=== PATIENT | female | born 1975 | race Caucasian/White ===

== ENCOUNTER → 2020-04-16 14:55 | Outpatient (BNVA) | payer BC, SELFPAY | PROVIDERS: Family Provider Family Medicine; PCP Family Medicine; Visit Provider Nurse Practitioner | DX: Z20.828 Contact with and (suspected) exposure to other viral communicable diseases (principal) | CPT/HCPCS: 87635 ==

== ENCOUNTER 2020-12-22 07:19 | Outpatient (CLI) | payer OTHER, SELFPAY ==
--- NOTE | 2020-12-22 07:15 | US_ITS ---
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 TECHNIQUE: 2-D and color Doppler imaging of the kidney submitted. Right kidney: 11.3 cm x 4.7 cm x 4.3 cm. Normal size kidney. The fat-containing mass extending from the lower pole of the kidney measures 6.7 x 3.3 cm. No definite increased vascularity. This mass is probably not changed significantly in size but is difficult to evaluate by ultrasound due to its hyperechoic nature. Left kidney: 9.7 cm x 5.2 cm x 5.2 cm. Normal echogenicity with no hydronephrosis or mass. Aorta: Normal. Urinary Bladder: Normal distention. US/US renal BI* [id number] IMPRESSION: 1. Relatively stable appearance of the fat-containing mass associated with the lower pole RIGHT kidney since 12/09/2018. 2. No hydronephrosis.
== END 2020-12-22 07:20 | disposition home or self-care (01) ==
PROVIDERS: PCP Family Medicine; Visit Provider Urology
DX: D30.01 Benign neoplasm of right kidney (principal)
CPT/HCPCS: 76770; 81003

== ENCOUNTER → 2021-01-26 14:50 | Outpatient (BNVA) | payer OTHER, SELFPAY | PROVIDERS: PCP Family Medicine; Visit Provider Obstetrics & Gynecology | DX: Z30.431 Encounter for routine checking of intrauterine contraceptive device (principal); Z30.9 Encounter for contraceptive management, unspecified | CPT/HCPCS: 87070; 87205 ==

== ENCOUNTER → 2021-03-10 16:19 | Outpatient (BNVA) | payer OTHER, SELFPAY | PROVIDERS: PCP Family Medicine; Visit Provider Obstetrics & Gynecology | DX: Z12.4 Encounter for screening for malignant neoplasm of cervix (principal); Z30.431 Encounter for routine checking of intrauterine contraceptive device | CPT/HCPCS: 88175 ==

== ENCOUNTER 2022-09-12 09:38 | Outpatient (CLI) | payer OTHER, SELFPAY ==
--- NOTE | 2022-09-12 09:55 | MM_ITS ---
WS: [id number] DIAGNOSTIC BILATERAL DIGITAL BREAST TOMOSYNTHESIS MAMMOGRAPHY WITH CAD RIGHT breast ultrasound, limited HISTORY: N63.0 - Unspecified lump in unspecified breast, RIGHT COMPARISON: None available. TECHNIQUE: Bilateral craniocaudad, mediolateral oblique, and mediolateral views are submitted with to mosynthesis and SM. Spot compression RIGHT CC and MLO. Computer aided detection utilized. Breast composition: The breasts are heterogeneously dense, which may obscure small masses. Marker is placed along the lateral inferior RIGHT breast at the palpable site. No underlying mass identified. N o calcifications. No distortion. The LEFT breast is negative. RIGHT breast ultrasound, limited. Ultrasound directed along the 8-9 o'clock axis in the area of palpable abnormality. No mass identifie d. There is no shadowing or distortion. MM/[place] [id number] IMPRESSION: BI-RADS: 2-Benign FOLLOW UP: 1 Year Follow-up
--- NOTE | 2022-09-12 10:15 | US_ITS ---
WS: [id number] DIAGNOSTIC BILATERAL DIGITAL BREAST TOMOSYNTHESIS MAMMOGRAPHY WITH CAD RIGHT breast ultrasound, limited HISTORY: N63.0 - Unspecified lump in unspecified breast, RIGHT COMPARISON: None available. TECHNIQUE: Bilateral craniocaudad, mediolateral oblique, and mediolateral views are submitted with to mosynthesis and SM. Spot compression RIGHT CC and MLO. Computer aided detection utilized. Breast composition: The breasts are heterogeneously dense, which may obscure small masses. Marker is placed along the lateral inferior RIGHT breast at the palpable site. No underlying mass identified. N o calcifications. No distortion. The LEFT breast is negative. RIGHT breast ultrasound, limited. Ultrasound directed along the 8-9 o'clock axis in the area of palpable abnormality. No mass identifie d. There is no shadowing or distortion. US/US breast RT limited* [id number] IMPRESSION: BI-RADS: 2-Benign FOLLOW UP: 1 Year Follow-up
== END 2022-09-12 09:39 | disposition home or self-care (01) ==
PROVIDERS: PCP Family Medicine; Visit Provider Obstetrics & Gynecology
DX: N63.10 Unspecified lump in the right breast, unspecified quadrant (principal)
CPT/HCPCS: 76642; 77062; G0279

== ENCOUNTER → 2022-10-30 11:04 | Outpatient (BNVA) | payer OTHER, SELFPAY | PROVIDERS: PCP Family Medicine; Visit Provider Nurse Practitioner Family | DX: J02.9 Acute pharyngitis, unspecified (principal); J03.00 Acute streptococcal tonsillitis, unspecified | CPT/HCPCS: 87880 ==

== ENCOUNTER 2022-11-21 10:58 | Outpatient (CLI) | payer OTHER, SELFPAY ==
--- NOTE | 2022-11-21 10:45 | US_ITS ---
WS: [id number] RENAL ULTRASOUND HISTORY: NEOPLASM RT KIDNEY COMPARISON: 12/22/2020, CT 12/27/2017 TECHNIQUE: 2-D and color Doppler imaging of the kidney submitted. Right kidney: 11.0 cm x 5.4 cm x 4.1 cm. Cortex: 1.3 cm No hydronephrosis. Previously described solid fat-containing mass associated with the kidney is not v isualized by ultrasound. Fatty neoplasm may blend into the adjacent retroperitoneal fat. Left kidney: 10.9 cm x 5.7 cm x 4.9 cm. Cortex: 1.9 cm Normal echogenicity with no hydronephrosis or mass. Aorta: Normal. Urinary Bladder: Normal distention. US/US renal BI* [id number] IMPRESSION: 1. Normal renal ultrasound. 2. Previously described fat-containing mass from the RIGHT kidney is not ident ified by ultrasound. This is probably due to the fact that it blends in with th e adjacent retroperitoneal fat. For more definitive characterization and follow -up consider CT abdomen with IV contrast.
== END 2022-11-21 10:59 | disposition home or self-care (01) ==
LOC: RAD 11:00
PROVIDERS: PCP Family Medicine; Visit Provider Urology
DX: D30.01 Benign neoplasm of right kidney (principal)
CPT/HCPCS: 76770; 81003

== ENCOUNTER 2022-12-03 11:37 | Outpatient (CLI) | payer OTHER, SELFPAY ==
--- NOTE | 2022-12-03 11:45 | MR_ITS ---
WS: [id number] MRI ABDOMEN with and without CONTRAST. COMPARISON: Renal ultrasound 11/21/2022., Prior CT 12/28/2027. Multiplanar, multisequence imaging is performed with and without contrast. Reidentified is the fat-containing mass contiguous and emanating from the RIGHT lateral renal cortex. Fat-containing mass with a few thin thin septations which do enhance. Mass is very similar in size a s compared to the CT from 12/27/2017. Mass extends over a length of 7.2 cm x 5.7 cm transversely and 5. 0 cm anterior posterior. Mass abuts the posterior muscularis propria of the ascending colon. There is no adjacent free fluid. No large areas of hemorrhage. On the postcontrast imaging there are a few fi ne thin septations which do enhance. No additional abnormality within either kidney. There is no obst ruction. Visualized lung bases are clear. Liver and spleen are negative. No adrenal mass. Negative pancreas. S mall ventral abdominal wall hernia. MR/MR abdomen wo/w con* [id number] IMPRESSION: 1. Large fat-containing mass with septal enhancement involving the RIGHT kidne y measures 5.7 x 5.0 cm and extends over a length of 7.2 cm. Very similar in si ze to the CT of 12/27/2017. Most consistent with a renal angiomyolipoma. 2. No additional renal masses and no obstruction.
[2022-12-03] MEDS: gadobenate dimeglumine 20 mL vial IV (13:23)
== END 2022-12-03 11:38 | disposition home or self-care (01) ==
PROVIDERS: PCP Family Medicine; Visit Provider Urology
DX: D30.01 Benign neoplasm of right kidney (principal)
CPT/HCPCS: 74183; A9577

== ENCOUNTER → 2022-12-04 16:07 | Outpatient (BNVA) | payer OTHER, SELFPAY | PROVIDERS: PCP Family Medicine; Visit Provider Urology | DX: D30.01 Benign neoplasm of right kidney (principal) | CPT/HCPCS: 81003 ==

== ENCOUNTER → 2023-01-02 15:51 | Outpatient (BNVA) | payer OTHER, SELFPAY | PROVIDERS: PCP Family Medicine; Visit Provider Family Medicine | DX: R53.83 Other fatigue (principal); Z13.6 Encounter for screening for cardiovascular disorders | CPT/HCPCS: 80053; 80061; 82306; 84443; 85025 ==

== ENCOUNTER 2023-11-19 10:37 | Day surgery (SDC) | payer OTHER, SELFPAY ==
[2023-11-19] VITALS (11 sets, daily range): BP systolic 96–126; BP diastolic 60–84; PULSE 49–65; RESP 16–18; TEMP 36.2–36.6; O2SAT 96–100; BMI 26.6
[2023-11-19] MEDS: sodium chloride 0.9% 1,000 ML 30 ML IV (11:12)
--- NOTE | 2023-11-19 12:14 | ANES.PREANE2 ---
Pre-Anesthetic Assessment Height/Weight: Height 1.75 m Weight 81.647 kg Temp Pulse Resp BP Pulse Ox O2 Del Method 97.8 F 65 18 126/84 99 Room Air 11/19/23 11:00 11/19/23 11:00 11/19/23 11:00 11/19/23 11:00 11/19/23 11:00 11/19/23 11:00 Operation Date: 11/19/23 12:10 Proposed Procedures p Laparoscopic Ventral Hernia Repair Laparoscopic Incisional Hernia Repair(Not Applicable) - Lamberto Osorio DO s Laparoscopic Umbilical Hernia Repair(Not Applicable) - Lamberto Osorio DO Familial anesthetic complications: none Was Beta Justus taken within 24 hours: N/A Was Clonidine taken within 24 hours: N/A Last intake: Intake Last Liquid Date 11/18/23 Last Liquid Time 23:00 Last Solid Date 11/18/23 Last Solid Time 20:00 Social No alcohol and No tobacco Exam alert, oriented x 3, clear to auscultation bilaterally and regular rate & rhythm Airway Mallampati: Class I Dentition: full Anesthetic Plan ASA status: 1 Anesthesia: General Risk of > 500 ml blood loss (7ml/kg in children): No Medications/Allergies Home Medications Medication Instructions Recorded Confirmed Last Taken Type copper 380 square mm intrauterine intrauterine 03/10/21 11/04/23 Unknown History device (ParaGard T 380A) Allergies Allergy/AdvReac Type Severity Reaction Status Date / Time No Known Allergies Allergy Verified 11/04/23 08:33 Current Medications Generic Name Dose Route Start Last Admin Trade Name Freq PRN Reason Stop Dose Admin Sodium Chloride 1,000 mls @ 30 mls/hr 11/19/23 11:00 11/19/23 11:12 Sodium Chloride 0.9% IV 11/20/23 10:59 30 mls/hr .Q24H PRADEEP Administration PFSH Anesthesia Medical History Breast lump Angiomyolipoma of right kidney Asthma Surgical History History of wisdom tooth extraction Family History Sister Diabetes Father Diabetes Mother , AT AGE 87 Cancer Heart disease Father No problems noted. Denies family history of Colon cancer Ovarian cancer Hypercholesteremia Breast cancer Hypertension Uterine cancer Thyroid disease Stroke Social History Smoking and tobacco/nicotine status: never used tobacco/nicotine Alcohol intake: current Alcohol intake frequency: few times a week Substance/Drug Use: never Marital status: Current occupational status: unemployed Do you think of yourself as: Straight/Heterosexual Data Anesthesia Cardiac Studies: No Data to Display
--- NOTE | 2023-11-19 13:20 | W.PM.OPSUD ---
Surgery/Procedure H&P Update DATE OF PROCEDURE: November 19, 2023 DATE H&P PERFORMED: 11/04/23 H&P UPDATE INFORMATION: I have reviewed H&P completed within last 30 days, I have examined patient prior to procedure and No changes to prior documentation PLANNED PROCEDURE: Operation Date: 11/19/23 12:10 Proposed Procedures p Laparoscopic Ventral Hernia Repair Laparoscopic Incisional Hernia Repair(Not Applicable) - DO marco Swift Laparoscopic Umbilical Hernia Repair(Not Applicable) - Lamberto Osorio DO
[2023-11-19] MEDS: ceFAZolin 2,000 MG in sodium chloride 0.9% (plus) 50 ML 100 MG IV (14:24)
[2023-11-19] MEDS: BUPivacaine 0.25% INJ 10 mL INJECTION (14:58)
[2023-11-19] MEDS: lidocaine-epi 2% PF 1:200,000 20 mL SDV XX (14:58)
[2023-11-19] MEDS: fentaNYL 50 mcg/mL INJ 2mL IVP (15:50)
--- NOTE | 2023-11-19 15:50 | PM.OP ---
Operative Report Date of procedure: November 19, 2023 Pre-op diagnosis: Incisional hernia and umbilical hernia Post-op diagnosis: same Procedure done: Laparoscopic repair of umbilical and incisional hernias with mesh Implants: 6 inch round Ventralight mesh Specimens removed/disposition: Hernia sac Surgeon: Lamberto Osorio DO Anesthesia: General and Local Estimated blood loss (mL): 5 Complications: None apparent Brief History: This very pleasant 48-year-old female presented my office with a fairly large incisional hernia with an adjacent umbilical hernia. Laparoscopic repair with mesh was indicated. The risk and benefits were explained and documented. Procedure: Patient was wheeled into the operative room and placed on the OR table in a supine position. Abdomen was inspected prepped and draped in usual sterile fashion. Time-out was performed and all present were in agreement. A 15 blade scalp was used to make a 5 millimeter incision left upper quadrant. A Veress needle was placed into the incision and intra-abdominal insufflation was brought to 15 millimeters of mercury. A 12 millimeter trocar was placed into the left lower quadrant. There was an incisional hernia just cephalad to the umbilical hernia. The tumor basically conjoined and measured 5 cm and greatest diameter combined. The energy but device was then used to cut out the hernia sac. A 6 inch ventral light mesh was placed into the abdomen and brought up through the umbilicus using an the Gadiel-Fatimah. The mesh was then tacked in place in a double crown fashion. The skeleton of the mesh was removed via the left lower quadrant. The hernia sac was then removed from the abdomen via the left lower quadrant. The left lower quadrant port site was closed with an 0 Vicryl suture in a Gadiel-Fatimah in a [id number] fashion. Incisions were closed with 4 O Vicryl in a subcuticular interrupted fashion. Skin glue was applied. Patient tolerated the procedure well.
[2023-11-19] MEDS: HYDROcodone-acetaminophen 7.5-325 mg Tablet 1 TAB PO (16:44)
[2023-11-19] MEDS: ondansetron 2 mg/ML SDV 2 mL 4 MG IVP (16:51)
--- NOTE | 2023-11-19 17:45 | ANE.PACU2 ---
Inpatient post-anesthesia follow up: Airway intact: Yes Vital signs: Temperature 97.5 F Pulse Rate 54 Respiratory Rate 18 Blood Pressure 118/64 Pulse Oximetry 96 Oxygen Delivery Me thod Room Air Oxygen Flow Rate 6 Fraction of Inspir ed Oxygen Hydration adequate: Yes Nausea and vomiting: No Pain level: 1 Mental status: Baseline
== END 2023-11-19 17:45 | disposition home or self-care (01) ==
PROVIDERS: PCP Family Medicine; Visit Provider Surgery
PROC: 0WQF4ZZ Repair Abdominal Wall, Percutaneous Endoscopic Approach (ICD-10-PCS; CPT 49593; principal; 2023-11-19 12:10)
PROC: 0WQF4ZZ Repair Abdominal Wall, Percutaneous Endoscopic Approach (ICD-10-PCS; CPT 49593; 2023-11-19 12:10)
DX: K43.2 Incisional hernia without obstruction or gangrene (principal); K42.9 Umbilical hernia without obstruction or gangrene; J45.909 Unspecified asthma, uncomplicated
CPT/HCPCS: 49593; 81025; 88302; J0690; J1100; J1171; J1885; J2250; J2405; J2704; J3010; J3490; J7030; J9999